=== PATIENT | female | born 1935 | race Caucasian/White ===

== ENCOUNTER 2021-04-14 13:36 | Emergency (ER) | payer MEDICARE, BC ==
[2021-04-14] MEDS ORDERED: Sodium Chloride 0.9% 10 ML Syringe FLUSH PRN (13:41)
[2021-04-14] MEDS ORDERED: Ondansetron 4 MG/2 ML SDV IVPUSH STA (13:43)
[2021-04-14] MEDS ORDERED: hydrALAZINE 20 MG/ML SDV IVPUSH STA (13:43)
[2021-04-14] MEDS ORDERED: cloNIDine 0.1 MG Tab PO ONE (13:43)
[2021-04-14] MEDS ORDERED: Morphine 4 MG/ML VIAL IVPUSH STA (13:45)
--- NOTE | 2021-04-14 14:03 | EDM.PDOC ---
ED HPI GENERAL MEDICAL PROBLEM - General Chief Complaint: Abdominal Pain Stated Complaint: ABD PAIN Time Seen by Provider: 04/14/21 13:45 Source of Information: Reports: Patient History Limitations: Reports: No Limitations - History of Present Illness INITIAL COMMENTS - FREE TEXT/NARRATIVE: Patient presented to the ED because of LLQ pain, nausea but no vomiting since she was diagnosed with diverticulitis 2 days ago. She was prescribed Augmentin 875 mg twice daily and Tylenol for pain. There is no fever, chills,changes in BM or urinary symptoms. Left Middle Abdomen Pain Score (Numeric/FACES): 8 - Related Data Allergies Allergy/AdvReac Type Severity Reaction Status Date / Time No Known Allergies Allergy Verified 04/14/21 13:48 Home Meds: Home Meds Fosinopril [Monopril] 40 mg PO DAILY 03/25/14 [History] Pravastatin [Pravachol] 40 mg PO BEDTIME 03/25/14 [History] Triamterene/Hydrochlorothiazid [Dyazide 37.5-25] 1 ea PO DAILY 03/25/14 [History] ALPRAZolam [Alprazolam ODT] 0.5 mg PO TID PRN 03/28/14 [History] Albuterol [Ventolin HFA] 1 - 2 puff INH Q4HR PRN 04/14/21 [History] Amoxicillin/Potassium Clav [Amox-Clav 875-125 mg Tablet] 1 tab PO BID 04/14/21 [History] Anastrozole 1 gm PO DAILY 04/14/21 [History] Aspirin [Halfprin] 81 mg PO DAILY 04/14/21 [History] Calcium Carbonate [Tums] 500 mg PO DAILY 04/14/21 [History] Cholecalciferol (Vitamin D3) [Vitamin D3] 1.25 mg PO WEEKLY 04/14/21 [History] Fluticasone Propion/Salmeterol [Fluticasone-Salmeterol 100-50] 1 puff INH BID 04/14/21 [History] Fluticasone Propionate [Flonase] 2 spray INH DAILY 04/14/21 [History] L.acidoph,Paracasei, B.lactis [Probiotic] 1 cap PO DAILY 04/14/21 [History] Magnesium Oxide [Magnesium] 400 mg PO DAILY 04/14/21 [History] Montelukast [Singulair] 10 mg PO BEDTIME 04/14/21 [History] traMADol [Ultram] 50 mg PO Q6H PRN #15 tab 04/14/21 [Rx] ED ROS GENERAL - Review of Systems Review Of Systems: See Below Constitutional: Reports: No Symptoms HEENT: Reports: No Symptoms Respiratory: Reports: No Symptoms Cardiovascular: Reports: No Symptoms Endocrine: Reports: No Symptoms GI/Abdominal: Reports: Abdominal Pain, Nausea, Vomiting Musculoskeletal: Reports: No Symptoms, Neck Pain Skin: Reports: No Symptoms, Mottled Neurological: Reports: No Symptoms, Confusion, Dizziness Psychiatric: Reports: No Symptoms Hematologic/Lymphatic: Reports: No Symptoms Immunologic: Reports: No Symptoms ED EXAM, GI/ABD - Physical Exam Exam: See Below Exam Limited By: No Limitations General Appearance: Alert, No Apparent Distress Ears: Normal External Exam, Normal Canal, Hearing Grossly Normal, Normal TMs Nose: Normal Inspection, Normal Mucosa, No Blood Throat/Mouth: Normal Inspection, Normal Lips, Normal Teeth, Normal Gums, Normal Oropharynx, Normal Voice, No Airway Compromise Head: Atraumatic, Normocephalic Neck: Normal Inspection, Supple, Non-Tender, Full Range of Motion Respiratory/Chest: No Respiratory Distress, Lungs Clear, Normal Breath Sounds, No Accessory Muscle Use, Chest Non-Tender Cardiovascular: Normal Peripheral Pulses, Regular Rate, Rhythm, No Edema, No Gallop, No JVD, No Murmur, No Rub GI/Abdominal Exam: Normal Bowel Sounds, Soft, No Organomegaly, No Distention, No Abnormal Bruit, No Mass, Pelvis Stable, Tender Course - Vital Signs Text/Narrative:: Lab/CT abd-pelvis result was reviewed and discussed with patient and her son Clonidine 0.2 mg PO x1 Hydralazine 20 mg IV x1 Zofran 4 mg IV x1 Morphine 4 mg IV x1 NS 1 L bolus Meclizine 50 mg PO x1 Last Recorded V/S: Last Vital Signs Temp 36.7 C 04/14/21 13:40 Pulse 48 L 04/14/21 13:40 Resp 18 04/14/21 13:40 BP 240/87 H 04/14/21 14:03 Pulse Ox 99 04/14/21 13:40 - Orders/Labs/Meds Orders: Active Orders 24 hr Category Date Time Status Abdomen Pelvis w Cont [CT] Stat Exams 04/14/21 13:41 Taken UA W/MICROSCOPIC [URIN] Stat Lab 04/14/21 13:41 Ordered Sodium Chloride 0.9% [Normal Saline] 1,000 ml Med 04/14/21 15:00 Active IV ASDIRECTED Sodium Chloride 0.9% [Saline Flush] Med 04/14/21 13:41 Active 10 ml FLUSH ASDIRECTED PRN Saline Lock Insert [OM.PC] Routine Oth 04/14/21 13:41 Ordered Medication Orders Sodium Chloride (Normal Saline) 1,000 mls @ 999 mls/hr IV ASDIRECTED SAMIRA Last Admin: 04/14/21 15:00 Dose: 999 mls/hr Documented by: PETER Sodium Chloride (Sodium Chloride 0.9% 10 Ml Syringe) 10 ml FLUSH ASDIRECTED PRN PRN Reason: Keep Vein Open Last Admin: 04/14/21 14:04 Dose: 10 ml Documented by: PETER Labs: Laboratory Tests 04/14/21 04/14/21 04/14/21 Range/Units 14:05 14:05 14:05 WBC 5.4 (3.0-10.3) x10-3/uL RBC 4.24 (3.60-5.20) x10(6)uL Hgb 13.1 (11.4-15.5) g/dL Hct 38.6 (34.2-48.2) % MCV 91.1 (76.7-100.5) fL MCH 31.0 (23.9-33.9) pg MCHC 34.0 (31.9-34.8) g/dL RDW 12.7 (12.3-16.5) % Plt Count 344 (151-488) x10(3)uL MPV 7.1 (7.1-12.4) fL Neut % (Auto) 66.6 (30.8-76.2) % Lymph % (Auto) 21.4 (18.4-52.1) % [place] % (Auto) 9.8 (4.4-15.7) % Eos % (Auto) 1.2 (0.6-8.1) % Baso % (Auto) 1.0 (0.2-1.5) % Neut # (Auto) 3.6 (1.5-6.3) x10-3/uL Lymph # (Auto) 1.2 (1.0-4.4) x10-3/uL [place] # (Auto) 0.5 (0.3-1.0) x10-3/uL Eos # (Auto) 0.1 (0.0-0.8) x10-3/uL Baso # (Auto) 0.1 (0.0-0.1) x10-3/uL Sodium 129 L (135-145) mmol/L Potassium 3.3 L (3.5-5.3) mmol/L Chloride 92 L (100-110) mmol/L Carbon Dioxide 29 (21-32) mmol/L BUN 12 (7-18) mg/dL Creatinine 0.8 (0.55-1.02) mg/dL Est Cr Clr Drug Dosing TNP Estimated GFR (MDRD) > 60 (>60) BUN/Creatinine Ratio 15.0 (9-20) Glucose 114 (80-116) mg/dL Calcium 9.2 (8.6-10.2) mg/dL Total Bilirubin 0.9 (0.1-1.3) mg/dL AST 16 (5-25) IU/L ALT 20 (12-36) U/L Alkaline Phosphatase 78 (56-112) IU/L Troponin I (4.0-60.3) pg/mL Total Protein 7.1 (6.0-8.0) g/dL Albumin 3.9 (3.2-4.6) g/dL Globulin 3.2 g/dL Albumin/Globulin Ratio 1.2 Amylase 29 (25-115) U/L Lipase 86 (73-393) U/L 04/14/21 Range/Units 14:05 WBC (3.0-10.3) x10-3/uL RBC (3.60-5.20) x10(6)uL Hgb (11.4-15.5) g/dL Hct (34.2-48.2) % MCV (76.7-100.5) fL MCH (23.9-33.9) pg MCHC (31.9-34.8) g/dL RDW (12.3-16.5) % Plt Count (151-488) x10(3)uL MPV (7.1-12.4) fL Neut % (Auto) (30.8-76.2) % Lymph % (Auto) (18.4-52.1) % [place] % (Auto) (4.4-15.7) % Eos % (Auto) (0.6-8.1) % Baso % (Auto) (0.2-1.5) % Neut # (Auto) (1.5-6.3) x10-3/uL Lymph # (Auto) (1.0-4.4) x10-3/uL [place] # (Auto) (0.3-1.0) x10-3/uL Eos # (Auto) (0.0-0.8) x10-3/uL Baso # (Auto) (0.0-0.1) x10-3/uL Sodium (135-145) mmol/L Potassium (3.5-5.3) mmol/L Chloride (100-110) mmol/L Carbon Dioxide (21-32) mmol/L BUN (7-18) mg/dL Creatinine (0.55-1.02) mg/dL Est Cr Clr Drug Dosing Estimated GFR (MDRD) (>60) BUN/Creatinine Ratio (9-20) Glucose (80-116) mg/dL Calcium (8.6-10.2) mg/dL Total Bilirubin (0.1-1.3) mg/dL AST (5-25) IU/L ALT (12-36) U/L Alkaline Phosphatase (56-112) IU/L Troponin I 11.1 (4.0-60.3) pg/mL Total Protein (6.0-8.0) g/dL Albumin (3.2-4.6) g/dL Globulin g/dL Albumin/Globulin Ratio Amylase (25-115) U/L Lipase (73-393) U/L Meds: Medications Generic Name Dose Route Start Last Admin Trade Name Freq PRN Reason Stop Dose Admin Sodium Chloride 1,000 mls @ 999 mls/hr 04/14/21 15:00 04/14/21 15:00 Normal Saline IV 999 mls/hr ASDIRECTED SAMIRA Administration Sodium Chloride 10 ml 04/14/21 13:41 04/14/21 14:04 Sodium Chloride 0.9% 10 Ml Syringe FLUSH 10 ml ASDIRECTED PRN Administration Keep Vein Open Discontinued Medications Generic Name Dose Route Start Last Admin Trade Name Brenna PRN Reason Stop Dose Admin Clonidine HCl 0.2 mg 04/14/21 13:43 04/14/21 14:03 Clonidine 0.1 Mg Tab PO 04/14/21 13:44 0.2 mg ONETIME ONE Administration Hydralazine HCl 20 mg 04/14/21 13:43 04/14/21 14:03 Hydralazine 20 Mg/Ml Sdv IVPUSH 04/14/21 13:44 20 mg NOW STA Administration Iopamidol 75 ml 04/14/21 14:42 04/14/21 14:58 Iopamidol 755 Mg/Ml 75 Ml Bottle IV 04/14/21 14:43 75 ml ASDIRECTED ONE Administration Meclizine HCl 50 mg 04/14/21 14:52 04/14/21 15:01 Meclizine 25 Mg Tab PO 04/14/21 14:53 50 mg NOW STA Administration Morphine Sulfate 4 mg 04/14/21 13:45 04/14/21 14:03 Morphine 4 Mg/Ml Vial IVPUSH 04/14/21 13:46 4 mg NOW STA Administration Ondansetron HCl 4 mg 04/14/21 13:43 04/14/21 14:03 Ondansetron 4 Mg/2 Ml Sdv IVPUSH 04/14/21 13:44 4 mg NOW STA Administration Potassium Chloride 40 meq 04/14/21 14:54 04/14/21 15:01 Potassium Chloride 20 Meq Tab.Er PO 04/14/21 14:55 40 meq NOW STA Administration Departure - Departure Time of Disposition: 16:00 Disposition: Home, Self-Care 01 Condition: Good Clinical Impression: Diverticulitis - Discharge Information Prescriptions: traMADol [Ultram] 50 mg PO Q6H PRN #15 tab PRN Reason: Pain Instructions: Diverticulitis, [id number], Hypertension, Adult, [id number] Referrals: PCP,None [Primary Care Provider] - Forms: ED Department Discharge Additional Instructions: Please read discharge instructions on Diverticulitis Drink at least 2 liters of water daily Continue your Augmentin twice daily until gone Tramadol 50 mg with tylenol 500 mg every 6 hours as needed for pain Follow up as needed Sepsis Event Note (ED) - Evaluation Sepsis Screening Result: No Definite Risk - Focused Exam Vital Signs: Vital Signs Temp Pulse Resp BP BP Pulse Ox 04/14/21 14:03 240/87 H 04/14/21 13:40 36.7 C 48 L 18 240/87 H 99 - My Orders Last 24 Hours: My Active Orders 04/14/21 13:41 Abdomen Pelvis w Cont [CT] Stat UA W/MICROSCOPIC [URIN] Stat Sodium Chloride 0.9% [Saline Flush] 10 ml FLUSH ASDIRECTED PRN Saline Lock Insert [OM.PC] Routine 04/14/21 15:00 Sodium Chloride 0.9% [Normal Saline] 1,000 ml IV ASDIRECTED - Assessment/Plan Last 24 Hours: My Active Orders 04/14/21 13:41 Abdomen Pelvis w Cont [CT] Stat UA W/MICROSCOPIC [URIN] Stat Sodium Chloride 0.9% [Saline Flush] 10 ml FLUSH ASDIRECTED PRN Saline Lock Insert [OM.PC] Routine 04/14/21 15:00 Sodium Chloride 0.9% [Normal Saline] 1,000 ml IV ASDIRECTED
[2021-04-14] MEDS ORDERED: Iopamidol 755 Mg/ML 75 ML Bottle IV ONE (14:42)
[2021-04-14] MEDS ORDERED: Meclizine 25 MG Tab PO STA (14:52)
[2021-04-14] MEDS ORDERED: Potassium Chloride 20 MEQ Tab.ER PO STA (14:54)
[2021-04-14] MEDS ORDERED: Sodium Chloride 0.9% 1,000 ML IV SCH (15:00)
[2021-04-14 17:28] VITALS: BP 124/75; PULSE 58
== END 2021-04-14 16:00 | disposition home or self-care (01) ==
LOC: FB.ED 13:36
DX: K57.92 Diverticulitis of intestine, part unspecified, without perforation or abscess without bleeding (principal); Z79.899 Other long term (current) drug therapy; Z79.82 Long term (current) use of aspirin
CPT/HCPCS: 36415; 74177; 80053; 82150; 83690; 84484; 85025; 96374; 96375; 99284; A9270; J0360; J2270; J2405; J7030; Q9967

== ENCOUNTER 2023-08-29 08:13 | Inpatient (IN) | payer MEDICARE, BC ==
[2023-08-29] MEDS ORDERED: Calcium Carbonate 500 MG Tab.Chew PO PRN (16:08)
[2023-08-29] MEDS ORDERED: Albuterol 6.7 GM Inhaler INH PRN (16:08)
[2023-08-29] MEDS ORDERED: Acetaminophen 325 MG Tab PO PRN (16:12)
[2023-08-29] MEDS: Potassium Chloride 20 MEQ Tab.ER PO SCH (17:12)
[2023-08-29] MEDS: Magnesium Chloride 64 MG Tab.ER PO SCH (17:12)
[2023-08-29] MEDS: Carvedilol 25 MG Tab PO SCH (17:13)
[2023-08-29] MEDS: Magnesium Oxide 400 MG Tab PO SCH (17:14)
[2023-08-29] MEDS: Formoterol/Mometasone 200-5 MCG 8.8 GM Inhaler IH SCH (20:55)
[2023-08-29] MEDS: Pravastatin 20 MG Tab PO SCH (20:57)
[2023-08-29] MEDS: ALPRAZolam 0.5 MG Tab PO SCH (21:12)
[2023-08-30] MEDS: amLODIPine 2.5 MG Tab PO SCH (09:29)
[2023-08-30] MEDS: Anastrozole 1 MG Tab PO SCH (09:30)
[2023-08-30] MEDS: Sertraline 50 MG Tab PO SCH (09:30)
[2023-08-30] MEDS: Fluticasone NASAL Spray 16 GM Bottle NAS SCH (09:30)
[2023-08-31] MEDS: HYDROCORTISONE 0.5% TOP SCH (15:07)
[2023-09-01] MEDS: Magnesium Oxide 400 MG Tab PO ONE (18:02)
[2023-09-03] MEDS: Ergocalciferol (Vitamin D2) 1.25 MG Cap PO SCH (08:09)
[2023-09-05 07:16] VITALS: BP 141/66; PULSE 61
== END 2023-09-05 12:10 | disposition home or self-care (01) | DRG 948 ==
LOC: FB.MS 14:21
PROVIDERS: ADMIT Internal Medicine; ATTEND Family Medicine
DX: R53.1 Weakness (principal); R53.81 Other malaise; H54.7 Unspecified visual loss; I10 Essential (primary) hypertension; J45.909 Unspecified asthma, uncomplicated; F41.9 Anxiety disorder, unspecified; F32.A Depression, unspecified; R21 Rash and other nonspecific skin eruption; Z95.0 Presence of cardiac pacemaker; Z79.51 Long term (current) use of inhaled steroids; Z79.899 Other long term (current) drug therapy; Z87.19 Personal history of other diseases of the digestive system; Z98.890 Other specified postprocedural states; Z86.79 Personal history of other diseases of the circulatory system
CPT/HCPCS: 36415; 83735; 97110-GP; 97112-GP; 97116-GP; 97161-GP; 97165-GO; 97530-GO; 97530-GP; 97535-GO; 99305; 99307; 99316; A9270-GY